=== PATIENT | female | born 2000 | race Caucasian/White ===

== ENCOUNTER → 2020-10-09 | Outpatient (CLI) | payer BC | LOC: COL.RAD 15:27 | DX: R22.42 Localized swelling, mass and lump, left lower limb (principal); M61.9 Calcification and ossification of muscle, unspecified | CPT/HCPCS: A9585 ==

== ENCOUNTER → 2022-01-07 | Outpatient (CLI) | payer BC | LOC: COL.RAD 11:08 | DX: N20.0 Calculus of kidney (principal) ==

== ENCOUNTER 2022-02-23 10:29 | Day surgery (SDC) | payer BC ==
[~2022-02-23] VITALS: Ht 157.5 cm; Wt 98.9 kg
[2022-02-23 11:26] VITALS: BP 115/55; PULSE 97; TEMP 98.4
[2022-02-23 14:10] VITALS: BP 86/43; PULSE 75; TEMP 98
--- NOTE | 2022-02-23 14:10 | NUR ---
PT BACK TO BAY 3 PER CART FROM OR. REPORT RECEIVED FROM DOG OR ANIMAL SITTER AND FMD TEACHER. VS OBTAINED. CALL LIGHT WITHIN REACH. PT RESTING COMFORTABLY.
[2022-02-23] MEDS ORDERED: MOTRIN 600600 MG/TAB PO (14:17)
[2022-02-23] MEDS ORDERED: NORCO 325 MG-51 TAB PO (14:17)
[2022-02-23 14:25] VITALS: BP 92/46; PULSE 56
[2022-02-23 14:40] VITALS: BP 84/46; PULSE 58
--- NOTE | 2022-02-23 14:40 | NUR ---
PT TOLERATING WATER WITHOUT DIFFICULTY. DENIES ANY OTHER NEEDS.
[2022-02-23 14:55] VITALS: BP 101/57; PULSE 57
[2022-02-23 15:25] VITALS: BP 102/54; PULSE 55
--- NOTE | 2022-02-23 16:30 | NUR ---
1615-IV DC'D AT THIS TIME. DISCHARGE EDUCATION COMPLETED WITH PT AND HER SISTER. VERBALIZED UNDERSTANDING OF HOME AND FOLLOW UP CARE. ALL QUESTIONS ANSWERED. DISCHARGE PAPERWORK GIVEN TO PT. 1630-PT OFF UNIT PER WHEELCHAIR. PT DISCHARGED TO HOME WITH HER SISTER PER PERSONAL VEHICLE.
== END 2022-02-23 16:30 | disposition home or self-care (01) ==
LOC: SDCO 10:29
DX: D17.1 Benign lipomatous neoplasm of skin and subcutaneous tissue of trunk (principal)
CPT/HCPCS: J0690; J2704; J3010; J7120